=== PATIENT | male | born 1980 | race Hispanic/Latino ===

== ENCOUNTER 2022-11-23 21:26 | Emergency (ER) | payer SELFPAY ==
[2022-11-23] MEDS ORDERED: Lidocaine 1% w/Epinephrine 1:100K 20 ML VIAL ONE (22:52)
== END 2022-11-23 23:24 | disposition home or self-care (01) ==
LOC: ERS 21:26
DX: L03.211 Cellulitis of face (principal)
CPT/HCPCS: 10060

== ENCOUNTER 2022-12-07 17:28 | Inpatient (IN) | payer SELFPAY ==
[2022-12-07 17:59] LABS: #Basophils 0.1 thou/uL (0.0-0.2); #Eosinphils 0.1 thou/uL (0.0-0.7); #Lymphocytes 3.5 thou/uL (1.20-3.40); #Monocytes 0.7 thou/uL (0.11-0.59); #Neutrophils 6.2 thou/uL (1.40-6.50); %Basophils 0.7 % (0.0-1.0); %Eosinophils 0.7 % (0.0-10.0); %Lymphocytes 33.2 % (21.0-51.0); %Monocytes 6.3 % (0.0-10.0); %Neutrophils 59.1 % (42.0-75.0); Hemoglobin 14.1 g/dL (14.0-18.0); Mean Corpuscular HGB CONC 35.1 g/dL (32.0-36.0); Mean Corpuscular Hemoglobin 29.4 pg (27.0-31.0); Mean Corpuscular Volume 83.6 fl (78.0-98.0); Mean Platelet Volume 8.1 fL (7.4-10.4); Platelet Count 266 10x3/uL (130-400); RBC Distribution Width 11.9 % (11.5-14.5); Red Blood Cell (RBC) Count 4.79 mill/uL (4.70-6.10); White Blood Cell (WBC) Count 10.4 10x3/uL (4.8-10.8)
[2022-12-07] MEDS ORDERED: Morphine 4 MG/ML VIAL ONE (18:08)
[2022-12-07] MEDS ORDERED: Boostrix 0.5 ML (Tdap) VIAL (>/=7 yrs of age) ONE (18:08)
[2022-12-07] MEDS ORDERED: CEFAZOLIN 2 GM VIAL ONE (18:08)
[2022-12-07] MEDS ORDERED: Ondansetron PF 4 MG/2 ML Vial ONE (18:08)
[2022-12-07 18:10] LABS: INR-International Normal Ratio 0.9; PTT 23.6 sec (22.9-36.1); Prothrombin Time 12.8 sec (12.0-14.7)
[2022-12-07 18:24] LABS: ALT (SGPT) 24 U/L (8-55); AST (SGOT) 23 U/L (5-34); Albumin 4.2 g/dL (3.5-5.0); Alkaline Phosphatase 113 U/L (40-110); Anion Gap 15 mmol/L (10-20); BUN (Urea Nitrogen) 22 mg/dL (8.9-20.6); Bilirubin, Total 0.7 mg/dL (0.2-1.2); CK (CPK) 78 U/L (30-200); Calc. Creatinine Clearance 0 mL/min (70-130); Calcium 9.2 mg/dL (7.8-10.44); Carbon Dioxide 18 mmol/L (22-29); Chloride 105 mmol/L (98-107); Estimated GFR 57; Globulin 4.2 g/dL (2.4-3.5); Glucose 374 mg/dL (70-105); Protein, Total 8.4 g/dL (6.0-8.3); Sodium 134 mmol/L (136-145)
[2022-12-07 19:43] LABS: Alcohol Less than 10 mg/dL (Less than 10); Phosphorus 3.3 mg/dL (2.3-4.7)
[2022-12-07 19:46] LABS: SARS-CoV-2 NAA Rapid Test Not Detected (NotDetected)
[2022-12-07] MEDS ORDERED: hydrALAZINE 20 MG/ML VIAL SLOW IVP PRN (20:25)
[2022-12-07] MEDS ORDERED: Morphine 4 MG/ML VIAL SLOW IVP PRN (20:25)
[2022-12-07] MEDS ORDERED: Insulin Regular 300 UNITS/3 ML VIAL SC PRN (20:25)
[2022-12-07] MEDS ORDERED: Dextrose 50% Abboject 50 ML SYRINGE SLOW IVP PRN (20:25)
[2022-12-07] MEDS ORDERED: Ondansetron PF 4 MG/2 ML Vial IVP PRN (20:25)
[2022-12-07] MEDS ORDERED: Dextrose 5% in Water 1,000 ML IV PRN (20:25)
[2022-12-07] MEDS ORDERED: Cyclobenzaprine 10 MG TAB PO PRN (20:28)
[2022-12-07] MEDS ORDERED: traMADol HCl 50 MG TAB PO PRN ×2 (20:28)
[2022-12-07 20:51] LABS: Hemoglobin A1c 10.2 % (4.0-6.0)
[2022-12-07] MEDS ORDERED: Famotidine 20 MG TAB ONE (21:17)
[2022-12-07] MEDS ORDERED: Bacitracin 1 PK ONE (21:17)
[2022-12-07] MEDS ORDERED: Acetaminophen 500 MG TAB ONE (21:17)
[2022-12-07] MEDS: Famotidine 20 MG TAB PO SCH (21:27)
[2022-12-07] MEDS: Acetaminophen 500 MG TAB PO SCH (21:28)
[2022-12-07] MEDS: Bacitracin 1 PK TOP SCH (21:28)
[2022-12-07] MEDS: Sodium Chloride 0.9% 1,000 ML IV SCH (21:28)
[2022-12-07] MEDS: Gabapentin 300 MG CAP PO SCH (22:46)
[2022-12-07] MEDS: Senokot S 8.6-50 MG TAB PO SCH (22:46)
[2022-12-08] MEDS ORDERED: CEFAZOLIN 2 GM VIAL ONE ×3 (02:20→17:56)
[2022-12-08] MEDS ORDERED: Acetaminophen 500 MG TAB ONE ×2 (02:20→09:41)
[2022-12-08] MEDS: CEFAZOLIN 2 GM in Sodium Chloride 0.9% 100 ML IVPB SCH ×3 (02:27→21:09)
[2022-12-08] MEDS: Acetaminophen 500 MG TAB PO SCH ×3 (02:28→21:05)
[2022-12-08 04:20] LABS: #Basophils 0.1 thou/uL (0.0-0.2); #Lymphocytes 2.6 thou/uL (1.20-3.40); #Monocytes 0.9 thou/uL (0.11-0.59); #Neutrophils 8.1 thou/uL (1.40-6.50); %Basophils 0.7 % (0.0-1.0); %Eosinophils 0.4 % (0.0-10.0); %Lymphocytes 22.2 % (21.0-51.0); %Neutrophils 68.7 % (42.0-75.0); Hemoglobin 12.4 g/dL (14.0-18.0); Mean Corpuscular HGB CONC 35.9 g/dL (32.0-36.0); Mean Corpuscular Hemoglobin 30.1 pg (27.0-31.0); Mean Corpuscular Volume 83.8 fl (78.0-98.0); Platelet Count 201 10x3/uL (130-400); RBC Distribution Width 11.9 % (11.5-14.5); Red Blood Cell (RBC) Count 4.12 mill/uL (4.70-6.10); White Blood Cell (WBC) Count 11.7 10x3/uL (4.8-10.8)
[2022-12-08 04:41] LABS: Anion Gap 13 mmol/L (10-20); BUN (Urea Nitrogen) 19 mg/dL (8.9-20.6); Calc. Creatinine Clearance 0 mL/min (70-130); Calcium 8.5 mg/dL (7.8-10.44); Carbon Dioxide 19 mmol/L (22-29); Chloride 108 mmol/L (98-107); Estimated GFR 103; Glucose 319 mg/dL (70-105); Magnesium 1.9 mg/dL (1.6-2.6); Phosphorus 3.2 mg/dL (2.3-4.7); Potassium 3.9 mmol/L (3.5-5.1); Sodium 136 mmol/L (136-145)
[2022-12-08] MEDS: Sodium Chloride 0.9% 1,000 ML IV SCH ×3 (05:28→21:13)
[2022-12-08 08:30] LABS: Amphetamine Not Detected (NotDetected); Barbiturates Screen Not Detected (NotDetected); Benzodiazepine Screen Not Detected (NotDetected); Cocaine Metabolite Screen Not Detected (NotDetected); Methadone Not Detected (NotDetected); Methamphetamine Not Detected (NotDetected); Opiate Screen Detected (NotDetected); Oxycodone Screen Not Detected (NotDetected); Phencyclidine (PCP) Not Detected (NotDetected); THC/Cannabinoid Screen Not Detected (NotDetected); Tricyclic Screen Not Detected (NotDetected)
[2022-12-08] MEDS: Polyethylene Glycol 3350 17 GM Packet PO SCH (09:37)
[2022-12-08] MEDS: Senokot S 8.6-50 MG TAB PO SCH ×2 (09:37→21:04)
[2022-12-08] MEDS ORDERED: Bacitracin 1 PK ONE (09:41)
[2022-12-08] MEDS ORDERED: Famotidine 20 MG TAB ONE (09:41)
[2022-12-08] MEDS: Gabapentin 300 MG CAP PO SCH ×3 (09:53→21:05)
[2022-12-08] MEDS: Famotidine 20 MG TAB PO SCH ×2 (09:53→21:04)
[2022-12-08] MEDS: Bacitracin 1 PK TOP SCH ×2 (09:53→21:04)
[2022-12-08] MEDS ORDERED: fentaNYL PF 100 MCG/2 ML SYRINGE ONE (11:48)
[2022-12-08] MEDS ORDERED: Insulin Regular 300 UNITS/3 ML VIAL ONE (12:39)
[2022-12-08] MEDS ORDERED: PHENYLEPHRINE-NS 100 MCG/ML 10 ML SYRINGE ONE (12:40)
[2022-12-08] MEDS ORDERED: PROPOFOL 200 MG/20 ML VIAL ONE (12:40)
[2022-12-08] MEDS ORDERED: Lidocaine 1% PF 5 ML VIAL ONE (12:40)
[2022-12-08] MEDS ORDERED: Ondansetron PF 4 MG/2 ML Vial ONE (12:40)
[2022-12-08] MEDS ORDERED: Bupivacaine PF 0.5% 30 ML VIAL ONE (13:40)
[2022-12-08] MEDS ORDERED: Fentanyl 100 MCG/2 ML VIAL ONE ×3 (14:38→19:11)
[2022-12-08] MEDS ORDERED: traMADol HCl 50 MG TAB PO PRN (16:03)
[2022-12-08] MEDS ORDERED: traMADol HCl 50 MG TAB ONE (17:57)
[2022-12-08] MEDS ORDERED: Gabapentin 300 MG CAP ONE (17:58)
[2022-12-08] MEDS ORDERED: Sodium Chloride 0.9% 100 ML ONE (17:58)
[2022-12-08] MEDS ORDERED: Boostrix 0.5 ML (Tdap) VIAL (>/=7 yrs of age) ONE (18:17)
[2022-12-08] MEDS: traMADol HCl 50 MG TAB PO SCH ×2 (18:22→23:47)
[2022-12-08] MEDS ORDERED: hydrALAZINE 20 MG/ML VIAL ONE (19:23)
[2022-12-08] MEDS: Metoprolol Tartrate 25 MG TAB PO SCH (21:04)
[2022-12-09 00:35] VITALS: BMI 24.1
[2022-12-09] MEDS: Acetaminophen 500 MG TAB PO SCH ×4 (01:38→15:17)
[2022-12-09] MEDS: Sodium Chloride 0.9% 1,000 ML IV SCH (03:24)
[2022-12-09 04:58] VITALS: TEMP 98.4
[2022-12-09] MEDS: traMADol HCl 50 MG TAB PO SCH ×2 (05:58→12:21)
[2022-12-09] MEDS: CEFAZOLIN 2 GM in Sodium Chloride 0.9% 100 ML IVPB SCH ×2 (05:59→13:52)
[2022-12-09] MEDS: Insulin Regular 300 UNITS/3 ML VIAL SC PRN ×2 (06:10→12:30)
[2022-12-09] MEDS ORDERED: metFORMIN 500 MG TAB PO SCH (08:00)
[2022-12-09] MEDS: Gabapentin 300 MG CAP PO SCH ×2 (09:34→15:18)
[2022-12-09] MEDS: Famotidine 20 MG TAB PO SCH (09:34)
[2022-12-09] MEDS: Bacitracin 1 PK TOP SCH (09:34)
[2022-12-09] MEDS: Polyethylene Glycol 3350 17 GM Packet PO SCH (09:36)
[2022-12-09] MEDS: Senokot S 8.6-50 MG TAB PO SCH (09:36)
[2022-12-09] MEDS: Metoprolol Tartrate 25 MG TAB PO SCH (09:36)
[2022-12-09 11:35] VITALS: BP 125/79
== END 2022-12-09 15:56 | disposition home or self-care (01) | DRG 511 ==
LOC: ERS 17:28 → ERHOLD 20:25 → OBSVTOIN 20:25 → SURG A 12-08 20:22
PROVIDERS: ADMIT Surgery; ATTEND Surgery
PROC: 0PSJ04Z Reposition Left Radius with Internal Fixation Device, Open Approach (ICD-10-PCS; principal; 2022-12-08)
DX: S52.572B Other intraarticular fracture of lower end of left radius, initial encounter for open fracture type I or II (principal); N17.9 Acute kidney failure, unspecified; S22.32XA Fracture of one rib, left side, initial encounter for closed fracture; W17.89XA Other fall from one level to another, initial encounter; R73.9 Hyperglycemia, unspecified; Z20.822 Contact with and (suspected) exposure to COVID-19
CPT/HCPCS: 29125; 36415; 36416; 70450; 71045; 72125; 80048; 80053; 80306; 80307; 82550; 83036; 83605; 83735; 84100; 85025; 85610; 85730; 86850; 86900; 86901; 90471; 90715; 93005; 96365; 96375; C1713; J0360; J1650; J1815; J2270; J2405; J2704; J3010; J3490; J7050; S0020; U0002

== ENCOUNTER 2023-01-13 12:53 | Emergency (ER) | payer SELFPAY | END 2023-01-13 15:39 | disposition home or self-care (01) | LOC: ERS 12:53 | DX: Z47.89 Encounter for other orthopedic aftercare (principal); E11.9 Type 2 diabetes mellitus without complications; I10 Essential (primary) hypertension; Z79.84 Long term (current) use of oral hypoglycemic drugs | CPT/HCPCS: 29105 ==